=== PATIENT | male | born 1960 | race Caucasian/White ===

== ENCOUNTER 2021-05-14 09:16 | Day surgery (SDCO) | payer OTHER ==
[~2021-05-14] VITALS: Ht 175.3 cm; Wt 95.4 kg
[2021-05-14 10:40] LABS: BASOPHIL 0.4 % (0-2); EOSINOPHIL 0.1 % (0-5); HCT 44.8 % (42.0-52.0); HGB 14.3 g/dl (13.2-18.0); LYMPHOCYTE 66.7 % (15-48); MCH 29.4 pg (25.0-31.0); MCHC 31.9 g/dL (32.0-36.0); MPV 9.4 fL (6.0-9.5); NEUTROPHIL 28.9 % (41-80); NRBC 0; PLT 163 K/uL (150-400); RBC 4.87 M/uL (4.70-6.00); RDW 15.8 % (11.5-14.0)
[2021-05-14 10:52] LABS: WBC 32.3 K/uL (4.0-10.5)
[2021-05-14 11:22] LABS: CORONAVIRUS 2019 SARS-COV-2 NEGATIVE (NEGATIVE); INFLUENZA A NAA NEGATIVE (NEGATIVE)
[2021-05-14 11:35] LABS: ALBUMIN 2.9 g/dL (3.4-5.0); BILIRUBIN - TOTAL 0.6 mg/dL (0.2-1.0); BUN/CREAT RATIO (CALC) 16.8 RATIO; CREATININE 1.01 mg/dL (0.67-1.17); GLOBULIN (CALCULATION) 4.6 g/dL; POTASSIUM 4.5 mmol/L (3.5-5.1); TOTAL PROTEIN 7.5 g/dL (6.4-8.2)
[2021-05-14 13:00] LABS: LACTIC ACID 1.4 mmol/L (0.4-1.9)
[2021-05-14] MEDS ORDERED: TAMSULOSIN HCL0.4 MG PO (14:42)
[2021-05-14] MEDS ORDERED: PAXIL10 MG PO (14:42)
[2021-05-14] MEDS ORDERED: DIAZEPAM 5MG TAB5 MG PO (14:43)
[2021-05-14] MEDS ORDERED: NORVASC5 MG PO (14:44)
[2021-05-14] MEDS ORDERED: LIPITOR20 MG PO (14:45)
[2021-05-14] MEDS ORDERED: EUTHYROX25 MCG PO (14:46)
[2021-05-14] MEDS ORDERED: TRELEGY ELLIPT1 EACH INH (14:48)
[2021-05-15 05:51] LABS: BASOPHIL 0.1 % (0-2); EOSINOPHIL 0 % (0-5); HCT 42.4 % (42.0-52.0); HGB 13.3 g/dl (13.2-18.0); MCHC 31.4 g/dL (32.0-36.0); MCV 92.4 fL (78.0-100.0); MONOCYTE 3.8 % (0-12); MPV 9.5 fL (6.0-9.5); NEUTROPHIL 21.3 % (41-80); NRBC 0; PLT 157 K/uL (150-400); RBC 4.59 M/uL (4.70-6.00); RDW 15.4 % (11.5-14.0)
[2021-05-15 05:59] LABS: WBC 40.9 K/uL (4.0-10.5)
[2021-05-15 06:24] LABS: BUN/CREAT RATIO (CALC) 22.7 RATIO; CREATININE 0.97 mg/dL (0.67-1.17); POTASSIUM 4.7 mmol/L (3.5-5.1)
[2021-05-15] MEDS ORDERED: AZITHROMYCIN250 MG PO (08:00)
[2021-05-15] MEDS ORDERED: PREDNISONE 20MG20 MG PO (08:37)
== END 2021-05-15 09:55 | disposition home or self-care (01) ==
LOC: FER 09:16 → FMS 11:43
PROVIDERS: Internal Medicine; Nurse Practitioner Acute Care; ADMIT Family Medicine
DX: J18.8 Other pneumonia, unspecified organism (principal); R65.20 Severe sepsis without septic shock; J96.01 Acute respiratory failure with hypoxia; I12.9 Hypertensive chronic kidney disease with stage 1 through stage 4 chronic kidney disease, or unspecified chronic kidney disease; N18.9 Chronic kidney disease, unspecified; J44.1 Chronic obstructive pulmonary disease with (acute) exacerbation; C95.90 Leukemia, unspecified not having achieved remission; R73.9 Hyperglycemia, unspecified; C61 Malignant neoplasm of prostate; G47.33 Obstructive sleep apnea (adult) (pediatric); F41.9 Anxiety disorder, unspecified; Z20.822 Contact with and (suspected) exposure to COVID-19; Z85.828 Personal history of other malignant neoplasm of skin; Z87.891 Personal history of nicotine dependence
CPT/HCPCS: 36415; 36600; 71045; 80048; 80053; 82803; 83036; 83605; 83880; 84145; 84484; 85025; 87040; 93005; 94010; 94640; G0378; J0456; J0696; J1650; J2930; J7030; J7040; J7050; U0002